=== PATIENT | male | born 1990 | race Caucasian/White ===

== ENCOUNTER 2025-11-07 15:07 | Outpatient (CLI) | payer BC | END 2025-11-07 15:08 | disposition home or self-care (01) | LOC: CSHCT 15:07 | PROVIDERS: ATTEND Orthopaedic Surgery Hand Surgery | DX: S62.015A Nondisplaced fracture of distal pole of navicular [scaphoid] bone of left wrist, initial encounter for closed fracture (principal); M24.232 Disorder of ligament, left wrist ==